=== PATIENT | female | born 1975 | race American Indian/Alaskan Native ===

== ENCOUNTER 2017-10-02 11:20 | Emergency (ER) | payer OTHER ==
[2017-10-02] MEDS ORDERED: ASPIRIN PO ONE (12:01)
[2017-10-02 12:32] LABS: Basophils % (Auto) 0.7 % (0.0-1.8); Eosinophils % (Auto) 0.3 % (0.0-4.3); Hematocrit 36.6 % (30.3-42.9); Hemoglobin 12.7 gm/dl (10.1-14.3); Lymphocytes # (Auto) 1.5 K/mm3 (1.2-5.4); Lymphocytes % (Auto) 38.6 % (13.4-35.0); Mean Corpuscular HGB Conc 35 % (30-34); Mean Corpuscular Hemoglobin 33 pg (28-32); Mean Corpuscular Volume 96 fl (79-97); Monocytes # (Auto) 0.3 K/mm3 (0.0-0.8); Monocytes % (Auto) 6.6 % (0.0-7.3); Platelet Count 167 K/mm3 (140-440); Red Cell Distribution Width 15.6 % (13.2-15.2)
[2017-10-02 12:45] LABS: BUN/Creatinine Ratio 13; Blood Urea Nitrogen 10 mg/dL (7-17); Calcium 9.3 mg/dL (8.4-10.2); Hemolysis Index 11
[2017-10-02 13:09] LABS: HCG Qualitative,Urine Negative (Negative)
[2017-10-02 13:10] LABS: Bacteria,Urine 1+ /HPF (Negative); Bilirubin,Urine NEG (Negative); Blood,Urine NEG (Negative); Color,Urine Yellow (Yellow); Mucus,Urine FEW /HPF; Urobilinogen,Urine < 2.0 mg/dL (<2.0)
[2017-10-02 13:12] LABS: Amphetamine Screen,Urine PRESUMPTIVE NEGATIVE; Benzodiazepines Screen,Urine PRESUMPTIVE NEGATIVE; Cocaine Screen,Urine PRESUMPTIVE NEGATIVE; Methadone Screen,Urine PRESUMPTIVE NEGATIVE; Opiate Screen,Urine PRESUMPTIVE NEGATIVE
[2017-10-02 13:33] LABS: Cannabinoid Screen,Urine PRESUMPTIVE POSITIVE
[2017-10-02 18:28] VITALS: BP 144/94
--- NOTE | 2017-10-02 18:44 | Emergency Department Report ---
ED Chest Pain HPI - General Chief Complaint: Chest Pain Stated Complaint: C/O CHEST/BACK PAIN/INSOMNIA Time Seen by Provider: 10/02/17 18:16 Source: patient Mode of arrival: Ambulatory Limitations: No Limitations - History of Present Illness Initial Comments: Ms. Mackenzie is a healthy 41 yo female with chest pain. Mild central pain transient for several seconds at a time. Her main concern is insomnia. She has not slept in 2 weeks. She is drinking more alcohol than normal. She has used marijuana in order to help her sleep. She is depressed. She has many social stressors. She is unemployed. She has limited financial resources. 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 She needs money for tuition. She requests prescription for ambien. She denies plan to harm herself. However, she has had thoughts of suicide previously. MD Complaint: chest pain Onset: during rest Pain Radiation: none Severity: mild Severity scale (0 -10): 7 Quality: sharp Consistency: intermittent Improves With: rest Worsens With: nothing Context: other (many social stressors) Treatments Prior to Arrival: none - Related Data Previous Rx's Medication Instructions Recorded Last Taken Type Zolpidem [Ambien] 10 mg PO QHS 7 Days #7 tab 10/02/17 Unknown Rx Allergies Allergy/AdvReac Type Severity Reaction Status Date / Time No Known Allergies Allergy Unverified 10/02/17 11:56 Heart Score - HEART Score History: Slightly suspicious EKG: Normal Age: < 45 Risk factors: No known risk factors Troponin: < normal limit HEART Score: 0 ED Review of Systems ROS: Stated complaint: C/O CHEST/BACK PAIN/INSOMNIA Other details as noted in HPI Comment: All other systems reviewed and negative Constitutional: denies: fever Respiratory: denies: cough Cardiovascular: denies: chest pain ED Past Medical Hx - Past Medical History Previous Medical History?: No - Surgical History Past Surgical History?: No - Family History Family history: no significant - Social History Smoking Status: Never Smoker Substance Use Type: Alcohol, Marijuana - Medications Home Medications: Home Medications Medication Instructions Recorded Confirmed Last Taken Type Zolpidem [Ambien] 10 mg PO QHS 7 Days #7 tab 10/02/17 Unknown Rx ED Physical Exam - General Limitations: No Limitations General appearance: alert, in no apparent distress - Head Head exam: Present: atraumatic, normocephalic - Eye Eye exam: Present: normal appearance - ENT ENT exam: Present: mucous membranes moist - Neck Neck exam: Present: normal inspection. Absent: tenderness, meningismus - Respiratory Respiratory exam: Present: normal lung sounds bilaterally. Absent: respiratory distress, wheezes, rales, rhonchi - Cardiovascular Cardiovascular Exam: Present: regular rate, normal rhythm, normal heart sounds. Absent: systolic murmur, diastolic murmur, rubs, gallop - GI/Abdominal GI/Abdominal exam: Present: soft, normal bowel sounds. Absent: distended, tenderness, guarding, rebound - Extremities Exam Extremities exam: Present: normal inspection - Back Exam Back exam: Present: normal inspection - Neurological Exam Neurological exam: Present: alert, oriented X3 - Psychiatric Psychiatric exam: Present: normal affect, anxious - Skin Skin exam: Present: warm, dry, intact, normal color. Absent: rash ED Course Vital Signs 10/02/17 10/02/17 11:57 18:22 Temperature 98.4 F 98.2 F Pulse Rate 103 H 91 H Respiratory 18 21 Rate Blood Pressure 134/86 Blood Pressure 144/94 [Right] O2 Sat by Pulse 100 100 Oximetry ED Medical Decision Making - Lab Data Result diagrams: 10/02/17 12:15 10/02/17 12:18 Laboratory Results - last 24 hr 10/02/17 10/02/17 10/02/17 12:15 12:18 15:22 WBC 3.8 L RBC 3.80 Hgb 12.7 Hct 36.6 MCV 96 MCH 33 H MCHC 35 H RDW 15.6 H Plt Count 167 Lymph % (Auto) 38.6 H [place] % (Auto) 6.6 Eos % (Auto) 0.3 Baso % (Auto) 0.7 Lymph # 1.5 Pike # 0.3 Eos # 0.0 Baso # 0.0 Seg Neutrophils % 53.8 Seg Neutrophils # 2.1 Sodium 138 Potassium 3.8 Chloride 98.2 Carbon Dioxide 20 L Anion Gap 24 BUN 10 Creatinine 0.8 Estimated GFR > 60 BUN/Creatinine Ratio 13 Glucose 156 H Calcium 9.3 Troponin T < 0.010 < 0.010 Urine Color Urine Turbidity Urine pH Ur Specific [place] Urine Protein Urine Glucose (UA) Urine Ketones Urine Blood Urine Nitrite Ur Reducing Substances Urine Bilirubin Urine Ictotest Urine Urobilinogen Ur Leukocyte Esterase Urine WBC (Auto) Urine RBC (Auto) U Epithel Cells (Auto) Urine Bacteria (Auto) Urine Mucus Urine HCG, Qual Urine Opiates Screen Urine Methadone Screen Ur Barbiturates Screen Ur Phencyclidine Scrn Ur Amphetamines Screen U Benzodiazepines Scrn Urine Cocaine Screen U Marijuana (THC) Screen Drugs of Abuse Note 10/02/17 10/02/17 Unknown Unknown WBC RBC Hgb Hct MCV MCH MCHC RDW Plt Count Lymph % (Auto) [place] % (Auto) Eos % (Auto) Baso % (Auto) Lymph # [place] # Eos # Baso # Seg Neutrophils % Seg Neutrophils # Sodium Potassium Chloride Carbon Dioxide Anion Gap BUN Creatinine Estimated GFR BUN/Creatinine Ratio Glucose Calcium Troponin T Urine Color Yellow Urine Turbidity Clear Urine pH 5.0 Ur Specific [place] 1.042 H Urine Protein 100 mg/dl Urine Glucose (UA) Neg Urine Ketones 20 Urine Blood Neg Urine Nitrite Neg Ur Reducing Substances Not Reportable Urine Bilirubin Neg Urine Ictotest Not Reportable Urine Urobilinogen < 2.0 Ur Leukocyte Esterase Neg Urine WBC (Auto) 5.0 Urine RBC (Auto) 4.0 U Epithel Cells (Auto) 5.0 Urine Bacteria (Auto) 1+ Urine Mucus Few Urine HCG, Qual Negative Urine Opiates Screen Presumptive negative Urine Methadone Screen Presumptive negative Ur Barbiturates Screen Presumptive negative Ur Phencyclidine Scrn Presumptive negative Ur Amphetamines Screen Presumptive negative U Benzodiazepines Scrn Presumptive negative Urine Cocaine Screen Presumptive negative U Marijuana (THC) Screen Presumptive positive Drugs of Abuse Note Disclamer Laboratory Results - last 24 hr 10/02/17 10/02/17 10/02/17 12:15 12:18 15:22 WBC 3.8 L RBC 3.80 Hgb 12.7 Hct 36.6 MCV 96 MCH 33 H MCHC 35 H RDW 15.6 H Plt Count 167 Lymph % (Auto) 38.6 H [place] % (Auto) 6.6 Eos % (Auto) 0.3 Baso % (Auto) 0.7 Lymph # 1.5 [place] # 0.3 Eos # 0.0 Baso # 0.0 Seg Neutrophils % 53.8 Seg Neutrophils # 2.1 Sodium 138 Potassium 3.8 Chloride 98.2 Carbon Dioxide 20 L Anion Gap 24 BUN 10 Creatinine 0.8 Estimated GFR > 60 BUN/Creatinine Ratio 13 Glucose 156 H Calcium 9.3 Troponin T < 0.010 < 0.010 Urine Color Urine Turbidity Urine pH Ur Specific [place] Urine Protein Urine Glucose (UA) Urine Ketones Urine Blood Urine Nitrite Ur Reducing Substances Urine Bilirubin Urine Ictotest Urine Urobilinogen Ur Leukocyte Esterase Urine WBC (Auto) Urine RBC (Auto) U Epithel Cells (Auto) Urine Bacteria (Auto) Urine Mucus Urine HCG, Qual Urine Opiates Screen Urine Methadone Screen Ur Barbiturates Screen Ur Phencyclidine Scrn Ur Amphetamines Screen U Benzodiazepines Scrn Urine Cocaine Screen U Marijuana (THC) Screen Drugs of Abuse Note 10/02/17 10/02/17 Unknown Unknown WBC RBC Hgb Hct MCV MCH MCHC RDW Plt Count Lymph % (Auto) [place] % (Auto) Eos % (Auto) Baso % (Auto) Lymph # [place] # Eos # Baso # Seg Neutrophils % Seg Neutrophils # Sodium Potassium Chloride Carbon Dioxide Anion Gap BUN Creatinine Estimated GFR BUN/Creatinine Ratio Glucose Calcium Troponin T Urine Color Yellow Urine Turbidity Clear Urine pH 5.0 Ur Specific [place] 1.042 H Urine Protein 100 mg/dl Urine Glucose (UA) Neg Urine Ketones 20 Urine Blood Neg Urine Nitrite Neg Ur Reducing Substances Not Reportable Urine Bilirubin Neg Urine Ictotest Not Reportable Urine Urobilinogen < 2.0 Ur Leukocyte Esterase Neg Urine WBC (Auto) 5.0 Urine RBC (Auto) 4.0 U Epithel Cells (Auto) 5.0 Urine Bacteria (Auto) 1+ Urine Mucus Few Urine HCG, Qual Negative Urine Opiates Screen Presumptive negative Urine Methadone Screen Presumptive negative Ur Barbiturates Screen Presumptive negative Ur Phencyclidine Scrn Presumptive negative Ur Amphetamines Screen Presumptive negative U Benzodiazepines Scrn Presumptive negative Urine Cocaine Screen Presumptive negative U Marijuana (THC) Screen Presumptive positive Drugs of Abuse Note Disclamer Vital Signs - 24 hr 10/02/17 10/02/17 11:57 18:22 Temperature 98.4 F 98.2 F Pulse Rate 103 H 91 H Respiratory 18 21 Rate Blood Pressure 134/86 Blood Pressure 144/94 [Right] O2 Sat by Pulse 100 100 Oximetry - EKG Data 10/02/17 18:47 NSR nl rate nl axis nl intervals no ST-T signs of ischemia no ST elevation Rate 90 bpm - Medical Decision Making Ms. Mackenzie presents with insomnia anxiety and depression. She does not have any persistent chest pain. She did have suicidal ideation. She denies any plan to harm herself or others. I asked her several times if she had a plan to harm herself. She repeatedly denied plan to harm hersefl. I recommended that she speak with our mental health counselor. She declined the offer. She only desires a sleep aid at this time.. She is encouraged to finish school. 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 Her daughter and other family members are supportive. I referred her to outpatient mental health clinic. I have prescribed 7 tablets of Ambien. Critical care attestation.: If time is entered above; I have spent that time in minutes in the direct care of this critically ill patient, excluding procedure time. ED Disposition Clinical Impression: Depression, Insomnia, Passive suicidal ideations Disposition: [id number] TO HOME OR SELFCARE Is pt being admited?: No Does the pt Need Aspirin: No Condition: Stable Instructions: Depression (ED), Insomnia (ED) Prescriptions: Zolpidem [Ambien] 10 mg PO QHS 7 Days #7 tab Referrals: [facility] [Outside] - 3-5 Days Forms: Work/School Release Form(ED)
== END 2017-10-02 19:10 | disposition home or self-care (01) ==
LOC: ED 11:20
DX: G47.00 Insomnia, unspecified (principal); R07.89 Other chest pain; F32.9 Major depressive disorder, single episode, unspecified; F41.9 Anxiety disorder, unspecified
CPT/HCPCS: 36415; 80048; 80307; 81001; 81025; 84484; 85025; 93005; 93010; 99283